=== PATIENT | female | born 1990 | race Caucasian/White ===

== ENCOUNTER 2017-03-31 07:39 | Day surgery (SDC) | payer OTHER ==
[2017-03-27 09:51] LABS: Urine Blood Negative /uL (Negative); Urine Specific Gravity 1.021 (1.001-1.035)
[2017-03-27 09:52] LABS: Basophils # (auto) 0 uL; Basophils % (auto) 0.4 % (0.0-2.0); Eosinophils # (auto) 0.1 uL; Eosinophils % (auto) 1.1 % (0.0-7.0); Hematocrit 42.7 % (36.0-46.0); Lymphocytes % (auto) 28.6 % (10.0-50.0); Mean Corpuscular Hemoglobin 31.9 pg (28.0-32.0); Mean Corpuscular Hgb Conc. 35.2 g/dL (32.0-36.0); Mean Corpuscular Volume 90.9 fL (80.0-100.0); Monocytes # (auto) 0.6 uL; Monocytes % (auto) 9.2 % (0.0-12.0); Neutrophils # (auto) 4.1 uL; Neutrophils % (auto) 60.7 % (37.0-80.0); Platelet Count (auto) 371 10^3/uL (140-450); White Blood Cell 6.8 10^3/uL (4.4-10.8)
[2017-03-27 10:07] LABS: Albumin 4.4 g/dL (3.4-5.0); BUN/Creatinine Ratio 24.6; Calcium 9.1 mg/dL (8.5-10.1); INR 0.92 (0.9-1.15); Potassium 3.8 mmol/L (3.5-5.1)
[2017-03-27 10:09] LABS: Bilirubin, Total 0.5 mg/dL (0.2-1.0); Total Protein 8.1 g/dL (6.4-8.2)
[~2017-03-31] VITALS: Ht 157.5 cm; Wt 58.1 kg
[~2017-03-31 07:39] MED LIST: AMPH10TA21 PO; CLON0.5T PO; LAMO25TA2 PO
[2017-03-31] MEDS ORDERED: ONDANSETRON HCL 4 MG/2 ML VIAL ONE (09:41)
[2017-03-31] MEDS ORDERED: fentaNYL CITRATE 100 MCG/2 ML VL ONE (09:41)
[2017-03-31] MEDS ORDERED: MIDAZOLAM HCL 1MG/1ML-2 ML VIAL ONE (09:41)
[2017-03-31] MEDS ORDERED: PROPOFOL 10 MG/ML 20 ML IV ONE (09:41)
[2017-03-31] MEDS ORDERED: SODIUM CHLORIDE LOCK 10 ML ONE (09:41)
[2017-03-31 11:11] VITALS: BP 105/70
== END 2017-03-31 11:11 | disposition home or self-care (01) ==
LOC: GI 07:39
PROVIDERS: ATTEND Internal Medicine Gastroenterology
DX: K20.9 Esophagitis, unspecified (principal); R19.7 Diarrhea, unspecified; Z91.041 Radiographic dye allergy status; Z88.1 Allergy status to other antibiotic agents; Z88.2 Allergy status to sulfonamides; D69.6 Thrombocytopenia, unspecified
CPT/HCPCS: 36415; 43239; 45380; 80053; 81003; 84702; 85025; 85610; J2250; J2405; J2704; J3010